=== PATIENT | male | born 1975 | race Hispanic/Latino ===

== ENCOUNTER 2021-11-03 09:28 | Emergency (ER) | payer BC ==
[2021-11-03 10:05] VITALS: BP 144/84
[2021-11-03] MEDS ORDERED: predniSONE 20 MG TAB PO ONE (11:50)
--- NOTE | 2021-11-03 12:29 | Emergency Department Report ---
ED General Adult HPI - General Chief complaint: Extremity Problem,Nontraumatic Stated complaint: FEET/FINGER PAIN PUI?: No Time Seen by Provider: 11/03/21 11:47 Source: patient Mode of arrival: Ambulatory Limitations: No Limitations - History of Present Illness Initial comments: Patient is a 46-year-old male that comes to the emergency room complaining of bilateral knee pain, bilateral great toe pain, and left index finger pain. 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 However, his father thinks he has gout so he comes to the ER for pain relief. He states he has not been able to work since he has had this pain now for several days. Patient denies any systemic symptoms. Denies fever or chills. Is ambulatory on arrival to ER -: Gradual, days(s) Consistency: constant Improves with: none Worsens with: none Associated Symptoms: denies other symptoms Treatments Prior to Arrival: Aspirin, other (Aspirin with no relief) - Related Data Previous Rx's Medication Instructions Recorded Last Taken Type Colchicine 0.6 mg PO DAILY #11 11/03/21 Unknown Rx Naproxen [Naprosyn] 500 mg PO BID PRN #20 tablet 11/03/21 Unknown Rx predniSONE [Deltasone] 20 mg PO DAILY #5 tablet 11/03/21 Unknown Rx Allergies Allergy/AdvReac Type Severity Reaction Status Date / Time No Known Allergies Allergy Verified 11/03/21 10:05 ED Review of Systems ROS: Stated complaint: FEET/FINGER PAIN Other details as noted in HPI Comment: All other systems reviewed and negative ED Past Medical Hx - Past Medical History Previous Medical History?: Yes Additional medical history: dvt on ac for 1 y; now off - Surgical History Past Surgical History?: No - Family History Family history: no significant - Social History Smoking Status: Never Smoker - Medications Home Medications: Home Medications Medication Instructions Recorded Confirmed Last Taken Type Colchicine 0.6 mg PO DAILY #11 11/03/21 Unknown Rx Naproxen [Naprosyn] 500 mg PO BID PRN #20 tablet 11/03/21 Unknown Rx predniSONE [Deltasone] 20 mg PO DAILY #5 tablet 11/03/21 Unknown Rx ED Physical Exam - General Limitations: No Limitations General appearance: alert, in no apparent distress - Head Head exam: Present: atraumatic, normocephalic - Eye Eye exam: Present: normal appearance - ENT ENT exam: Present: mucous membranes moist - Neck Neck exam: Present: normal inspection - Respiratory Respiratory exam: Present: normal lung sounds bilaterally. Absent: respiratory distress - Cardiovascular Cardiovascular Exam: Present: regular rate, normal rhythm. Absent: systolic murmur, diastolic murmur, rubs, gallop - GI/Abdominal GI/Abdominal exam: Present: soft, normal bowel sounds - Rectal Rectal exam: Present: deferred - Extremities Exam Extremities exam: Present: normal inspection - Back Exam Back exam: Present: normal inspection - Neurological Exam Neurological exam: Present: alert, oriented X3 - Psychiatric Psychiatric exam: Present: normal affect, normal mood - Skin Skin exam: Present: warm, dry, intact, normal color. Absent: rash ED Course Vital Signs 11/03/21 10:01 Temperature 98.9 F Pulse Rate 89 Respiratory 18 Rate Blood Pressure 144/84 O2 Sat by Pulse 95 Oximetry ED Medical Decision Making - Medical Decision Making Labs 11/03/21 12:03 Uric Acid 8.6 H Vital Signs 11/03/21 10:01 Temperature 98.9 F Pulse Rate 89 Respiratory 18 Rate Blood Pressure 144/84 O2 Sat by Pulse 95 Oximetry Patient medicated with prednisone and Motrin while in the ER. Uric acid level noted. Patient being discharged home with discharge plan of care including diet, activity, medications and follow-up. He verbalizes understanding of plan of care. Critical care attestation.: If time is entered above; I have spent that time in minutes in the direct care of this critically ill patient, excluding procedure time. ED Disposition Clinical Impression: Gouty arthritis Disposition: HOME / SELF CARE / HOMELESS Is pt being admited?: No Does the pt Need Aspirin: No Condition: Stable Instructions: Low-Purine Eating Plan Additional Instructions: Diet as described in the attached documents. Avoid alcohol. Keep your rheumatology appointment. Follow-up with PCP. Have given you referral below. Medications as ordered today. Referrals: LAURA CLINE MD [Staff Physician] - 3-5 Days Forms: Work/School Release Form(ED) Time of Disposition: 13:00
== END 2021-11-03 13:20 | disposition home or self-care (01) ==
LOC: ED 09:28
DX: M10.062 Idiopathic gout, left knee (principal); M10.061 Idiopathic gout, right knee; M10.072 Idiopathic gout, left ankle and foot; M10.071 Idiopathic gout, right ankle and foot; M10.042 Idiopathic gout, left hand
CPT/HCPCS: 36415; 84550; 99283